=== PATIENT | female | born 1985 | race American Indian/Alaskan Native ===

== ENCOUNTER 2018-10-20 09:36 | Emergency (ER) | payer OTHER, MEDICARE ==
[2018-10-20 09:44] VITALS: BP 114/74
--- NOTE | 2018-10-20 10:28 | Emergency Department Report ---
HPI - General Chief Complaint: Upper Respiratory Infection Time Seen by Provider: 10/20/18 10:17 - HPI HPI: 33-year-old female presents to the emergency department with a 3 to four-day history of some severe nasal congestion. She says that she tried some type of nasal spray that she got [place] [employer] without much relief. The symptoms seem to worsen at night and sometimes she will feel some secretions falling into the back of her throat causing a burning sensation. She wears a breathe right strip which does provide a little bit of relief. She has a primary care physician but has not seen them about her symptoms. No fever, cough, shortness of breath, nausea, vomiting. Patient says otherwise she feels well. No recent travel or sick contacts at home. ED Past Medical Hx - Past Medical History Previous Medical History?: No - Surgical History Past Surgical History?: No - Social History Smoking Status: Current Every Day Smoker Substance Use Type: Alcohol - Medications Home Medications: Home Medications Medication Instructions Recorded Confirmed Last Taken Type Fluticasone [Flonase] 1 spray NS QDAY #1 bottle 10/20/18 Unknown Rx Loratadine [Claritin] 10 mg PO DAILY #20 tablet 10/20/18 Unknown Rx RX: Pseudoephedrine ER [Sudafed 12 120 mg PO BID #10 tablet.er 10/20/18 Unknown Rx Hr] ED Review of Systems ROS: Stated complaint: NOSE CONGESTION/LINNETTE Other details as noted in HPI Comment: All other systems reviewed and negative Constitutional: denies: chills, diaphoresis Eyes: denies: eye pain, vision change ENT: congestion. denies: ear pain Respiratory: denies: cough, shortness of breath Cardiovascular: denies: chest pain, palpitations Gastrointestinal: denies: abdominal pain, vomiting Genitourinary: denies: dysuria, frequency Musculoskeletal: denies: back pain, arthralgia Skin: denies: rash, change in color Neurological: denies: headache, weakness Physical Exam - Physical Exam Vital Signs: Vital Signs 10/20/18 09:42 Temperature 98 F Pulse Rate 90 Respiratory 18 Rate Blood Pressure 114/74 O2 Sat by Pulse 99 Oximetry Physical Exam: GENERAL: The patient is well-developed well-nourished. HEENT: Normocephalic. Atraumatic. Patient has moist mucous membranes. Oropharynx is clear. Patient has severe bilateral boggy nasal mucosa with some erythema. EYES: Extraocular motions are intact. Pupils are equal and reactive to light bilaterally. NECK: Supple. Trachea is midline. CHEST/LUNGS: Clear to auscultation. There is no respiratory distress noted. HEART/CARDIOVASCULAR: Regular. There is no tachycardia. There is no obvious murmur. ABDOMEN: There is no abdominal distention. SKIN: Skin is warm and dry. NEURO: The patient is awake, alert, and oriented. The patient is cooperative. The patient has normal speech. MUSCULOSKELETAL: There is no tenderness or deformity. There is no limitation range of motion. There is no evidence of acute injury. ED Course Vital Signs 10/20/18 09:42 Temperature 98 F Pulse Rate 90 Respiratory 18 Rate Blood Pressure 114/74 O2 Sat by Pulse 99 Oximetry ED Medical Decision Making - Medical Decision Making The patient's main complaint is nasal congestion and/or swelling and difficulty breathing out of her nose. She does not really have any complaints regarding sore throat, shortness of breath, cough. On examination she does have boggy and erythematous nasal mucosa. Vital signs stable including being afebrile. The patient has been placed on Flonase, Claritin and a few days of pseudoephedrine. She has been given referrals for primary care and will return to the ER with any worsening of her symptoms or any acute distress. Critical Care Time: No Critical care attestation.: If time is entered above; I have spent that time in minutes in the direct care of this critically ill patient, excluding procedure time. ED Disposition Clinical Impression: Nasal congestion Disposition: DC-01 TO HOME OR SELFCARE Is pt being admited?: No Condition: Stable Instructions: Allergic Rhinitis (ED), Cold Symptoms (ED) Additional Instructions: Please follow-up with your primary care physician in the next few days. Return to the emergency Department with any worsening of your symptoms or any acute distress. Prescriptions: Fluticasone [Flonase] 1 spray NS QDAY #1 bottle Loratadine [Claritin] 10 mg PO DAILY #20 tablet RX: Pseudoephedrine ER [Sudafed 12 Hr] 120 mg PO BID #10 tablet.er Referrals: FISH DUMONT [Primary Care Provider] - 3-5 Days Time of Disposition: 10:27
== END 2018-10-20 10:35 | disposition home or self-care (01) ==
LOC: ED 09:36
DX: R09.81 Nasal congestion (principal); F17.200 Nicotine dependence, unspecified, uncomplicated
CPT/HCPCS: 99282

== ENCOUNTER 2019-04-19 10:22 | Emergency (ER) | payer OTHER, MEDICARE ==
[2019-04-19 10:30] VITALS: BP 122/87
[2019-04-19] MEDS ORDERED: PEPCID PO ONE (10:45)
[2019-04-19] MEDS ORDERED: BENTYL PO ONE ×2 (10:45→11:06)
[2019-04-19] MEDS ORDERED: ZOFRAN ODT PO ONE (10:45)
[2019-04-19 10:58] LABS: Bilirubin,Urine NEG (Negative); Blood,Urine SM (Negative); Color,Urine Colorless (Yellow); Protein,Urine <15 mg/dL mg/dL (Negative); Urobilinogen,Urine < 2.0 mg/dL (<2.0); WBC,Urine < 1.0 /HPF (0.0-6.0)
[2019-04-19 10:59] LABS: HCG Qualitative,Urine Negative (Negative)
[2019-04-19] MEDS ORDERED: BENTYL ONE (11:08)
--- NOTE | 2019-04-19 11:20 | Emergency Department Report ---
Vomiting/Diarrhea - HPI Chief Complaint: Nausea/Vomiting/Diarrhea Stated Complaint: VOMITING Time Seen by Provider: 04/19/19 10:38 Duration: 4 Days Severity: mild Nausea/Vomiting Severity: Mild Diarrhea Severity: Mild Pain Location: Generalized Pain Severity: Mild Symptoms: Yes Watery Diarrhea, Yes Able to Tolerate Fluids, No Bloody diarrhea, No Fever, No Recent Unusual Foods, No Recent Untreated Water, No Recent use of Antibiotics, No Family w/ Similar Symptoms, No Contacts w/ Similar Symptoms, No Rash, No Hematuria, No Recent URI Symptoms Other History: 33-year-old female presents to ED complaining of worsening nausea and diarrhea for the past 2 days. Patient states on Tuesday morning she started to have some abdominal cramps O Leonardo. Patient states nausea started 2 days ago and she had an episode of loose stools yesterday and today. Patient states his symptoms is worse when she eats. She denies fever/chills/chest pains or shortness of breath ED Review of Systems ROS: Stated complaint: VOMITING Other details as noted in HPI Comment: All other systems reviewed and negative ED Past Medical Hx - Past Medical History Previous Medical History?: No - Surgical History Past Surgical History?: No - Social History Smoking Status: Current Every Day Smoker Substance Use Type: None - Medications Home Medications: Home Medications Medication Instructions Recorded Confirmed Last Taken Type Fluticasone [Flonase] 1 spray NS QDAY #1 bottle 10/20/18 Unknown Rx Loratadine [Claritin] 10 mg PO DAILY #20 tablet 10/20/18 Unknown Rx Pseudoephedrine ER [Sudafed 12 Hr] 120 mg PO BID #10 tablet.er 10/20/18 Unknown Rx Dicyclomine [Bentyl] 10 mg PO TID #21 capsule 04/19/19 Unknown Rx Ondansetron (Nf) [Zofran TAB] 8 mg PO Q8HR PRN #20 tablet 04/19/19 Unknown Rx Vomiting Diarrhea Exam - Exam General: Vital signs noted. No distress. Alert and acting appropriately. HEENT: Yes Moist Mucous Membranes, No Pharyngeal Erythema, No Pharyngeal Exudates, No Rhinorrhea, No Conjuctival Injection, No Frontal Tenderness, No Maxillary Tenderness Neck: No Adenopathy, No Rigidity Lungs: Yes Clear Lung Sounds, Yes Good Air Exchange, No Wheezes, No Stridor, No Cough, No Nasal Flaring, No Retractions, No Use of Accessory Muscles Heart exam: Regular: Yes, Murmur: No, Tachycardia: No Abdomen: Tenderness: No, Peritoneal Signs: No, Distention: No, Hyperactive Bowel sounds: No Skin exam: Rash: No, Edema: No, Normal turgor: Yes Neurologic: Alert and oriented, no deficits. Musculoskeletal: Unremarkable. ED Course Vital Signs 04/19/19 10:29 Temperature 98.2 F Pulse Rate 92 H Respiratory 16 Rate Blood Pressure 122/87 O2 Sat by Pulse 100 Oximetry ED Medical Decision Making - Medical Decision Making 33-year-old female presents a gastroenteritis. Urinalysis, urine test negative. She received fentanyl and Zofran and Pepcid and made. Discussed findings with the patient. Discussed with patient follow-up with chief design branch. Referrals given to patient. Vital signs are normal patient is in no active distress or respiratory distress. There was no active vomiting diarrhea in the ED Critical care attestation.: If time is entered above; I have spent that time in minutes in the direct care of this critically ill patient, excluding procedure time. ED Disposition Clinical Impression: Gastroenteritis Disposition: DC-01 TO HOME OR SELFCARE Is pt being admited?: No Does the pt Need Aspirin: No Condition: Stable Instructions: Food Poisoning (ED), Gastroenteritis (ED) Additional Instructions: Make sure to follow up with the primary care physician as discussed. Take all your medications as you've been prescribed. If you have any worsening symptoms or develop new symptoms please return to ED immediately. Prescriptions: Dicyclomine [Bentyl] 10 mg PO TID #21 capsule Ondansetron (Nf) [Zofran TAB] 8 mg PO Q8HR PRN #20 tablet PRN Reason: Nausea Referrals: VLADIMIR DOBSON MD [Primary Care Provider] - 3-5 Days [facility] [Provider Group] - 3-5 Days [facility] [Outside] - 3-5 Days Forms: Accompanied Note, Work/School Release Form(ED) Time of Disposition: 11:36
== END 2019-04-19 11:46 | disposition home or self-care (01) ==
LOC: ED 10:22
DX: K52.9 Noninfective gastroenteritis and colitis, unspecified (principal); F17.200 Nicotine dependence, unspecified, uncomplicated
CPT/HCPCS: 81001; 81025; Q0162

== ENCOUNTER 2020-06-06 01:47 | Emergency (ER) | payer OTHER, MEDICARE ==
[2020-06-06 02:20] VITALS: BP 109/68
--- NOTE | 2020-06-06 03:08 | XRay Report ---
CHEST 2 VIEWS INDICATION / CLINICAL INFORMATION: chestpain. COMPARISON: None available. FINDINGS: SUPPORT DEVICES: None. HEART / MEDIASTINUM: No significant abnormality. LUNGS / PLEURA: No significant pulmonary or pleural abnormality. No pneumothorax. ADDITIONAL FINDINGS: No significant additional findings. IMPRESSION: 1. No acute findings. Signer Name: Helder Duran MD Signed: 06/06/2020 3:02 AM Workstation Name: [id number]
[2020-06-06 03:42] LABS: Basophils % (Auto) 0.5 % (0.0-1.8); Eosinophils # (Auto) 0.1 K/mm3 (0.0-0.4); Eosinophils % (Auto) 1.3 % (0.0-4.3); Hematocrit 38.8 % (30.3-42.9); Hemoglobin 12.7 gm/dl (10.1-14.3); Lymphocytes # (Auto) 1.7 K/mm3 (1.2-5.4); Lymphocytes % (Auto) 23.3 % (13.4-35.0); Mean Corpuscular HGB Conc 33 % (30-34); Mean Corpuscular Volume 81 fl (79-97); Monocytes # (Auto) 0.5 K/mm3 (0.0-0.8); Monocytes % (Auto) 6.5 % (0.0-7.3); Platelet Count 239 K/mm3 (140-440); Red Blood Count 4.79 M/mm3 (3.65-5.03); Red Cell Distribution Width 13.5 % (13.2-15.2)
[2020-06-06 04:01] LABS: Alanine Aminotransferase 11 units/L (7-56); Albumin 4.4 g/dL (3.9-5); Blood Urea Nitrogen 11 mg/dL (7-17); Calcium 9.2 mg/dL (8.4-10.2); Hemolysis Index 1
[2020-06-06 04:03] LABS: BUN/Creatinine Ratio 16
--- NOTE | 2020-06-06 04:33 | Emergency Department Report ---
ED Chest Pain HPI - General Chief Complaint: Chest Pain Stated Complaint: CHEST PAIN BACK PAIN Time Seen by Provider: 06/06/20 02:45 Source: patient Mode of arrival: Ambulatory Limitations: No Limitations - History of Present Illness Initial Comments: 35-year-old -[place] female patient presents with complaints of upper/mid back pain and chest pain x2 days. Patient states that the back pain started after she slept in a odd position. She reports the next day, she laid on the ground on her chest and had her daughter walk on her back to help alleviate her pain. Patient states the pain worsened after this and she also developed chest pain. She denies any shortness of breath, cough, fever/chills/sweats, leg pain/swelling, recent long travel, hemoptysis, hormone use, or history of DVT/PE. Patient also denies any known family history of heart disease or personal past medical history. She denies trying any [id number] medication for her symptoms. She rates her pain as a 7/10 in severity and states it worsens with movement of the torso and the arms. Quality: sharp - Related Data Previous Rx's Medication Instructions Recorded Last Taken Type Fluticasone [Flonase] 1 spray NS QDAY #1 bottle 10/20/18 Unknown Rx Loratadine (Nf) [Claritin] 10 mg PO DAILY #20 tablet 10/20/18 Unknown Rx Pseudoephedrine ER [Sudafed 12 Hr] 120 mg PO BID #10 tablet.er 10/20/18 Unknown Rx Dicyclomine [Bentyl] 10 mg PO TID #21 capsule 04/19/19 Unknown Rx Ondansetron (Nf) [Zofran TAB] 8 mg PO Q8HR PRN #20 tablet 04/19/19 Unknown Rx Ibuprofen [Motrin 800 MG tab] 800 mg PO Q8HR PRN #21 tablet 06/06/20 Unknown Rx methOCARBAMOL [Robaxin TAB] 1,500 mg PO Q8H PRN #20 tablet 06/06/20 Unknown Rx Allergies Allergy/AdvReac Type Severity Reaction Status Date / Time No Known Allergies Allergy Verified 04/19/19 10:46 Heart Score - HEART Score History: Slightly suspicious EKG: Normal Age: < 45 Risk factors: No known risk factors Troponin: < normal limit HEART Score: 0 - Critical Actions Critical Actions: 0-3 pts:0.9-1.7%risk of adverse cardiac event.Candidate for discharge ED Review of Systems ROS: Stated complaint: CHEST PAIN BACK PAIN Other details as noted in HPI Constitutional: denies: chills, diaphoresis, fever, malaise, weakness Respiratory: denies: cough, shortness of breath Cardiovascular: chest pain Gastrointestinal: denies: abdominal pain, nausea, vomiting Musculoskeletal: back pain Skin: denies: rash, lesions, change in color Neurological: denies: headache, numbness, paresthesias, abnormal gait ED Past Medical Hx - Past Medical History Previous Medical History?: No - Surgical History Past Surgical History?: No - Social History Smoking Status: Current Every Day Smoker Substance Use Type: None - Medications Home Medications: Home Medications Medication Instructions Recorded Confirmed Last Taken Type Fluticasone [Flonase] 1 spray NS QDAY #1 bottle 10/20/18 Unknown Rx Loratadine (Nf) [Claritin] 10 mg PO DAILY #20 tablet 10/20/18 Unknown Rx Pseudoephedrine ER [Sudafed 12 Hr] 120 mg PO BID #10 tablet.er 10/20/18 Unknown Rx Dicyclomine [Bentyl] 10 mg PO TID #21 capsule 04/19/19 Unknown Rx Ondansetron (Nf) [Zofran TAB] 8 mg PO Q8HR PRN #20 tablet 04/19/19 Unknown Rx Ibuprofen [Motrin 800 MG tab] 800 mg PO Q8HR PRN #21 tablet 06/06/20 Unknown Rx methOCARBAMOL [Robaxin TAB] 1,500 mg PO Q8H PRN #20 tablet 06/06/20 Unknown Rx ED Physical Exam - General Limitations: No Limitations General appearance: alert, in no apparent distress - Head Head exam: Present: atraumatic, normocephalic - Eye Eye exam: Present: normal appearance. Absent: scleral icterus - Respiratory Respiratory exam: Present: normal lung sounds bilaterally, chest wall tenderness (Bilateral parasternal tenderness to palpation noted without obvious deformity). Absent: respiratory distress - Cardiovascular Cardiovascular Exam: Present: regular rate, normal rhythm - GI/Abdominal GI/Abdominal exam: Present: soft. Absent: tenderness - Extremities Exam Extremities exam: Present: normal inspection, full ROM - Back Exam Back exam: Present: full ROM, tenderness, paraspinal tenderness (Thoracic), other (No deformities noted). Absent: vertebral tenderness - Neurological Exam Neurological exam: Present: alert, oriented X3 - Psychiatric Psychiatric exam: Present: normal affect, normal mood ED Course Vital Signs 06/06/20 02:12 Temperature 98.6 F Pulse Rate 84 Respiratory 18 Rate Blood Pressure 109/68 O2 Sat by Pulse 98 Oximetry ED Medical Decision Making - Lab Data Result diagrams: 06/06/20 02:47 06/06/20 02:47 Lab Results 06/06/20 06/06/20 Range/Units 02:47 02:47 WBC 7.4 (4.5-11.0) K/mm3 RBC 4.79 (3.65-5.03) M/mm3 Hgb 12.7 (10.1-14.3) gm/dl Hct 38.8 (30.3-42.9) % MCV 81 (79-97) fl MCH 27 L (28-32) pg MCHC 33 (30-34) % RDW 13.5 (13.2-15.2) % Plt Count 239 (140-440) K/mm3 Lymph % (Auto) 23.3 (13.4-35.0) % Guthrie % (Auto) 6.5 (0.0-7.3) % Eos % (Auto) 1.3 (0.0-4.3) % Baso % (Auto) 0.5 (0.0-1.8) % Lymph # (Auto) 1.7 (1.2-5.4) K/mm3 Guthrie # (Auto) 0.5 (0.0-0.8) K/mm3 Eos # (Auto) 0.1 (0.0-0.4) K/mm3 Baso # (Auto) 0.0 (0.0-0.1) K/mm3 Seg Neutrophils % 68.4 (40.0-70.0) % Seg Neutrophils # 5.1 (1.8-7.7) K/mm3 Sodium 139 (137-145) mmol/L Potassium 3.8 (3.6-5.0) mmol/L Chloride 103.3 (98-107) mmol/L Carbon Dioxide 23 (22-30) mmol/L Anion Gap 17 mmol/L BUN 11 (7-17) mg/dL Creatinine 0.7 (0.6-1.2) mg/dL Estimated GFR > 60 ml/min BUN/Creatinine Ratio 16 % Glucose 93 (65-100) mg/dL Calcium 9.2 (8.4-10.2) mg/dL Total Bilirubin 0.20 (0.1-1.2) mg/dL AST 15 (5-40) units/L ALT 11 (7-56) units/L Alkaline Phosphatase 42 (35-129) units/L Troponin T < 0.010 (0.00-0.029) ng/mL Total Protein 6.7 (6.3-8.2) g/dL Albumin 4.4 (3.9-5) g/dL Albumin/Globulin Ratio 1.9 % - Radiology Data Radiology results: report reviewed CHEST 2 VIEWS INDICATION / CLINICAL INFORMATION: chestpain. COMPARISON: None available. FINDINGS: SUPPORT DEVICES: None. HEART / MEDIASTINUM: No significant abnormality. LUNGS / PLEURA: No significant pulmonary or pleural abnormality. No pneumothorax. ADDITIONAL FINDINGS: No significant additional findings. IMPRESSION: 1. No acute findings. - Medical Decision Making 35-year-old -[place] female patient presents with complaints of upper/mid back pain and chest pain x2 days. Patient states that the back pain started after she slept in a odd position. She reports the next day, she laid on the ground on her chest and had her daughter walk on her back to help alleviate her pain. Patient states the pain worsened after this and she also developed chest pain. She denies any shortness of breath, cough, fever/chills/sweats, leg pain/swelling, recent long travel, hemoptysis, hormone use, or history of DVT/PE. Patient also denies any known family history of heart disease or personal past medical history. She denies trying any [id number] medication for her symptoms. She rates her pain as a 7/10 in severity and states it worsens with movement of the torso and the arms. Heart score = 0. PERC score = 0. Given patient's history and physical exam findings, suspect muscle strain and costochondritis secondary to her daughter walking on her back. Conservative treatment recommended with NSAIDs and icing. Recommend follow-up with PCP in 3 to 5 days. She is well-appearing, her vitals are normal, she is stable for discharge home. Discussed strict return precautions in great detail with patient who verbalized understanding. Critical care attestation.: If time is entered above; I have spent that time in minutes in the direct care of this critically ill patient, excluding procedure time. ED Disposition Clinical Impression: Costochondral chest pain Upper back strain Qualifiers: Encounter type: initial encounter Qualified Code(s): S29.012A - Strain of muscle and tendon of back wall of thorax, initial encounter Disposition: TO HOME OR SELFCARE Is pt being admited?: No Condition: Stable Instructions: Muscle Strain (ED), Costochondritis (ED), Muscle Spasm (ED), Chest Pain (ED) Prescriptions: Ibuprofen [Motrin 800 MG tab] 800 mg PO Q8HR PRN #21 tablet PRN Reason: pain methOCARBAMOL [Robaxin TAB] 1,500 mg PO Q8H PRN #20 tablet PRN Reason: muscle spasm/tightness Referrals: PRIMARY CARE, [Primary Care Provider] - 3-5 Days
[2020-06-06] MEDS ORDERED: IBUPROFEN 800 MG TAB PO ONE (04:45)
== END 2020-06-06 05:00 | disposition home or self-care (01) ==
LOC: ED 01:47
DX: S29.012A Strain of muscle and tendon of back wall of thorax, initial encounter (principal); R07.89 Other chest pain; F17.200 Nicotine dependence, unspecified, uncomplicated; Z79.1 Long term (current) use of non-steroidal anti-inflammatories (NSAID); Z79.899 Other long term (current) drug therapy; X58.XXXA Exposure to other specified factors, initial encounter; Y93.89 Activity, other specified; Y92.89 Other specified places as the place of occurrence of the external cause; Y99.8 Other external cause status
CPT/HCPCS: 36415; 71046; 80053; 84484; 85025; 93005

== ENCOUNTER 2021-05-23 10:57 | Emergency (ER) | payer OTHER, MEDICARE ==
[2021-05-23 12:45] VITALS: BP 114/72
== END 2021-05-23 15:36 | disposition left against medical advice (07) ==
LOC: ED 10:57
DX: R07.0 Pain in throat (principal); Z53.21 Procedure and treatment not carried out due to patient leaving prior to being seen by health care provider

== ENCOUNTER 2021-11-13 09:22 | Emergency (ER) | payer OTHER, MEDICARE ==
[2021-11-13 09:34] VITALS: BP 127/79
--- NOTE | 2021-11-13 12:26 | Emergency Department Report ---
ED ENT HPI - General Chief complaint: Sore Throat Stated complaint: MUCUS IN THROAT Time Seen by Provider: 11/13/21 12:13 Source: patient Mode of arrival: Ambulatory Limitations: No Limitations - History of Present Illness Initial comments: 36-year-old female presents to the emergency department for evaluation of few day history of cough congestion. She states that at nighttime her mucus is thick and she can get it up and it has caused her to have a sore throat. She denies fever, shortness of breath, she states that her phlegm is white. MD complaint: sore throat -: Gradual, days(s) (2-3) Severity: mild Quality: aching Consistency: constant Associated Symptoms: cough, sore throat, rhinorrhea. denies: fever, gum swelling, toothache, pain with swallowing, tinnitus, hearing loss, discharge from ear - Related Data Previous Rx's Medication Instructions Recorded Last Taken Type Fluticasone [Flonase] 1 spray NS QDAY #1 bottle 10/20/18 Unknown Rx Loratadine (Nf) [Claritin] 10 mg PO DAILY #20 tablet 10/20/18 Unknown Rx Pseudoephedrine ER [Sudafed 12 Hr] 120 mg PO BID #10 tablet.er 10/20/18 Unknown Rx Dicyclomine [Bentyl] 10 mg PO TID #21 capsule 04/19/19 Unknown Rx Ondansetron (Nf) [Zofran TAB] 8 mg PO Q8HR PRN #20 tablet 04/19/19 Unknown Rx Ibuprofen [Motrin 800 MG tab] 800 mg PO Q8HR PRN #21 tablet 06/06/20 Unknown Rx methOCARBAMOL [Robaxin TAB] 1,500 mg PO Q8H PRN #20 tablet 06/06/20 Unknown Rx Brompheniramine/Pseudoephed/Dm 10 ml PO TID PRN #118 ml 11/13/21 Unknown Rx [Bromfed Dm Cough Syrup] prednisoLONE [Millipred 5mg (6 day 5 mg PO QDAY #1 pack 11/13/21 Unknown Rx 21 tab dosepak)] Allergies Allergy/AdvReac Type Severity Reaction Status Date / Time No Known Allergies Allergy Verified 05/23/21 12:45 ED Dental HPI - General Chief complaint: Sore Throat Stated complaint: MUCUS IN THROAT Time Seen by Provider: 11/13/21 12:13 Source: patient Mode of arrival: Ambulatory Limitations: No Limitations - Related Data Previous Rx's Medication Instructions Recorded Last Taken Type Fluticasone [Flonase] 1 spray NS QDAY #1 bottle 10/20/18 Unknown Rx Loratadine (Nf) [Claritin] 10 mg PO DAILY #20 tablet 10/20/18 Unknown Rx Pseudoephedrine ER [Sudafed 12 Hr] 120 mg PO BID #10 tablet.er 10/20/18 Unknown Rx Dicyclomine [Bentyl] 10 mg PO TID #21 capsule 04/19/19 Unknown Rx Ondansetron (Nf) [Zofran TAB] 8 mg PO Q8HR PRN #20 tablet 04/19/19 Unknown Rx Ibuprofen [Motrin 800 MG tab] 800 mg PO Q8HR PRN #21 tablet 06/06/20 Unknown Rx methOCARBAMOL [Robaxin TAB] 1,500 mg PO Q8H PRN #20 tablet 06/06/20 Unknown Rx Brompheniramine/Pseudoephed/Dm 10 ml PO TID PRN #118 ml 11/13/21 Unknown Rx [Bromfed Dm Cough Syrup] prednisoLONE [Millipred 5mg (6 day 5 mg PO QDAY #1 pack 11/13/21 Unknown Rx 21 tab dosepak)] Allergies Allergy/AdvReac Type Severity Reaction Status Date / Time No Known Allergies Allergy Verified 05/23/21 12:45 ED Review of Systems ROS: Stated complaint: MUCUS IN THROAT Other details as noted in HPI Comment: All other systems reviewed and negative Constitutional: denies: chills, fever Eyes: denies: eye pain ENT: throat pain, congestion. denies: ear pain, dental pain, hearing loss, epistaxis Respiratory: denies: cough, orthopnea, shortness of breath, SOB with exertion Cardiovascular: denies: chest pain, palpitations Endocrine: no symptoms reported Gastrointestinal: denies: abdominal pain, nausea, vomiting, diarrhea, hematemesis Genitourinary: denies: dysuria, frequency, hematuria Musculoskeletal: denies: back pain Skin: denies: rash, lesions, change in color, change in hair/nails Neurological: denies: headache, weakness, numbness, paresthesias, confusion Psychiatric: denies: anxiety Hematological/Lymphatic: denies: easy bleeding, easy bruising ED Past Medical Hx - Social History Smoking Status: Current Every Day Smoker Substance Use Type: None - Medications Home Medications: Home Medications Medication Instructions Recorded Confirmed Last Taken Type Fluticasone [Flonase] 1 spray NS QDAY #1 bottle 10/20/18 Unknown Rx Loratadine (Nf) [Claritin] 10 mg PO DAILY #20 tablet 10/20/18 Unknown Rx Pseudoephedrine ER [Sudafed 12 Hr] 120 mg PO BID #10 tablet.er 10/20/18 Unknown Rx Dicyclomine [Bentyl] 10 mg PO TID #21 capsule 04/19/19 Unknown Rx Ondansetron (Nf) [Zofran TAB] 8 mg PO Q8HR PRN #20 tablet 04/19/19 Unknown Rx Ibuprofen [Motrin 800 MG tab] 800 mg PO Q8HR PRN #21 tablet 06/06/20 Unknown Rx methOCARBAMOL [Robaxin TAB] 1,500 mg PO Q8H PRN #20 tablet 06/06/20 Unknown Rx Brompheniramine/Pseudoephed/Dm 10 ml PO TID PRN #118 ml 11/13/21 Unknown Rx [Bromfed Dm Cough Syrup] prednisoLONE [Millipred 5mg (6 day 5 mg PO QDAY #1 pack 11/13/21 Unknown Rx 21 tab dosepak)] ED Physical Exam - General Limitations: No Limitations General appearance: alert, in no apparent distress - Head Head exam: Present: atraumatic, normocephalic - Eye Eye exam: Present: normal appearance. Absent: conjunctival injection - ENT ENT exam: Absent: normal orophraynx (Erythema noted to the oropharynx) - Neck Neck exam: Present: normal inspection, full ROM. Absent: tenderness, lymphadenopathy - Respiratory Respiratory exam: Present: normal lung sounds bilaterally. Absent: respiratory distress, wheezes, rales, rhonchi, chest wall tenderness - Cardiovascular Cardiovascular Exam: Present: regular rate, normal heart sounds - GI/Abdominal GI/Abdominal exam: Present: soft, normal bowel sounds. Absent: distended, tenderness, guarding, rebound - Extremities Exam Extremities exam: Present: normal inspection - Back Exam Back exam: Absent: full ROM, tenderness, CVA tenderness (R), CVA tenderness (L) - Neurological Exam Neurological exam: Present: alert, oriented X3 - Psychiatric Psychiatric exam: Present: normal affect, normal mood - Skin Skin exam: Present: warm, dry, intact, normal color ED Course Vital Signs 11/13/21 09:30 Temperature 98.2 F Pulse Rate 89 Respiratory 18 Rate Blood Pressure 127/79 [Right] O2 Sat by Pulse 99 Oximetry ED Medical Decision Making - Medical Decision Making 36-year-old female presents to the emergency department for evaluation of few day history of cough congestion. She states that at nighttime her mucus is thick and she can get it up and it has caused her to have a sore throat. She denies fever, shortness of breath, she states that her phlegm is white. Exam consistent with URI with cough and congestion. Patient will be treated with Medrol Dosepak along with Bromfed as needed for cough. She was advised to take medications as prescribed and follow-up with primary care provider or ER if no improvement. She verbalized understanding of and agreement with plan of care. Critical care attestation.: If time is entered above; I have spent that time in minutes in the direct care of this critically ill patient, excluding procedure time. ED Disposition Clinical Impression: URI with cough and congestion Disposition: 01 HOME / SELF CARE / HOMELESS Is pt being admited?: No Does the pt Need Aspirin: No Condition: Stable Instructions: Upper Respiratory Infection, Adult, [id number] Additional Instructions: Take medications as prescribed. Follow-up with primary care provider if no improvement or worsening symptoms. Prescriptions: Brompheniramine/Pseudoephed/Dm [Bromfed Dm Cough Syrup] 10 ml PO TID PRN #118 ml PRN Reason: Cough prednisoLONE [Millipred 5mg (6 day 21 tab dosepak)] 5 mg PO QDAY #1 pack Referrals: CYNDI SUAZO MD [Referring] - 3-5 Days Time of Disposition: 12:26
== END 2021-11-13 13:14 | disposition home or self-care (01) ==
LOC: ED 09:22
DX: J06.9 Acute upper respiratory infection, unspecified (principal); F17.200 Nicotine dependence, unspecified, uncomplicated; Z79.899 Other long term (current) drug therapy
CPT/HCPCS: 99282

== ENCOUNTER 2021-11-19 13:01 | Emergency (ER) | payer OTHER, MEDICARE ==
[2021-11-19 13:28] VITALS: BP 117/47
== END 2021-11-20 11:15 | disposition left against medical advice (07) ==
LOC: ED 13:01
DX: R09.3 Abnormal sputum (principal); Z53.21 Procedure and treatment not carried out due to patient leaving prior to being seen by health care provider